=== PATIENT | female | born 1970 ===

== ENCOUNTER 2020-04-15 18:05 | Observation (INO) | payer OTHER, SELFPAY ==
[2020-04-15 18:11] VITALS: BP 140/80; PULSE 97; RESP 16; TEMP 36.6; O2SAT 98; BMI 39.5
--- NOTE | 2020-04-15 18:22 | W.ED.EXTPRO ---
HPI - Extremity Problem General: Chief complaint: Extremity Problem,Nontraumatic Stated complaint: bilateral leg pain Time Seen by Provider: 04/15/20 18:21 History of Present Illness: Associated symptoms: Deny chest pain, fever(s) or rash Review of Systems Const: Denies: fever(s), chills or fatigue Eyes: Denies: change in vision or eye discomfort ENMT: Denies: throat pain, odynophagia, nasal discharge or nasal congestion Card: Denies: chest pain, palpitations, edema, swelling of feet/ankles, dyspnea on exertion or orthopnea Resp: Denies: dyspnea, productive cough or non-productive cough GI: Denies: abdominal pain, nausea, vomiting, diarrhea, constipation or hematochezia : Denies: flank pain, dysuria or hematuria Musc: Denies: neck pain, back pain or extremity swelling Skin/Breast: Denies: rash or new lesions Neuro: Denies: headache(s), numbness in extremities or weakness in extremities PFSH ED PFSH: Social History Smoking and tobacco status: heavy tobacco smoker Alcohol intake: current Alcohol intake frequency: few times a month Substance/Drug Use: never Physical Exam Const: COMMON NORMALS: patient oriented x3 HENMT: COMMON NORMALS: normocephalic HEAD & SCALP: normocephalic MOUTH: Normal oral and palatal mucosa present THROAT: posterior oropharynx normal and uvula midline Neck/C-Spine: COMMON NORMALS: supple GENERAL: Yes normal visual inspection Resp: COMMON NORMALS: normal respiratory effort, No retractions, No use of accessory muscles and clear to auscultation bilaterally AUSCULTATION: clear to auscultation bilaterally Cardio: COMMON NORMALS: regular rate, regular rhythm, S1 normal heart sound present, S2 normal heart sound present, No gallops present (Cardio), No clicks present (Cardio), No murmurs present (Cardio) and Peripheral pulses 2+ throughout RATE: regular rate RHYTHM: regular rhythm HEART SOUNDS: S1 normal heart sound present and S2 normal heart sound present PERIPHERAL PULSES: Peripheral pulses 2+ throughout GI: COMMON NORMALS: Normal to inspection, nondistended, normoactive bowel sounds present, Soft to palpation, non-tender and no masses PALPATION: Yes Soft to palpation : COMMON NORMALS: Yes no CVA tenderness BLADDER/KIDNEY EXAM: Yes no CVA tenderness Back/Pelvis: COMMON NORMALS: no CVA tenderness Neuro: COMMON NORMALS: patient oriented x3 and moves all extremities Course Vital Signs: Vital signs: Vital Signs Temperature 97.8 F 04/15/20 18:11 Pulse Rate 97 04/15/20 18:11 Respiratory Rate 16 04/15/20 18:11 Blood Pressure 140/80 04/15/20 18:11 Pulse Oximetry 98 04/15/20 18:11 Coding Level of Care Code 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
--- NOTE | 2020-04-15 18:46 | ED_ITS ---
HPI - Extremity Problem General: Chief complaint: Extremity Problem,Nontraumatic Stated complaint: bilateral leg pain Time Seen by Provider: 04/15/20 18:21 Source: patient Mode of arrival: ambulatory Limitations: no limitations History of Present Illness: HPI Narrative: Patient went floating 3 days ago on the river. It was supposed to be a 4-hour float trip and it turned out to be a 7-1/2 fluid shift. She got severe sunburns on several parts in her body especially in both lower extremities. She was cramping on that day but she try to keep up with her fluids by taking Gatorade. However her symptoms have gradually worsened. She has severe pain in both lower extremities on standing. She feels both legs are swollen. MD Complaint: extremity pain and extremity swelling Onset (ago): day(s) (2) Pain Consistency: constant Location: left, right and lower extremity Severity scale (1-10): 10 Associated symptoms: Deny fever(s) or rash Review of Systems General: Reports: 10 or more systems reviewed and unremarkable except in HPI and below Const: Denies: fever(s), chills or body aches Eyes: Denies: change in vision or blurry vision ENMT: Denies: throat pain, enlarged tonsils, odynophagia, hoarseness, mouth pain or swelling of lips/tongue Card: Denies: palpitations, irregular heart rhythm, edema or swelling of feet/ankles Resp: Denies: dyspnea, productive cough or non-productive cough GI: Denies: abdominal pain, nausea or vomiting : Denies: flank pain, difficulty voiding, dysuria, urinary frequency, urinary urgency or urinary hesitancy Musc: Reports: extremity pain; Denies: neck pain, back pain or extremity swelling Skin/Breast: Denies: rash, pruritus or erythema Neuro: Denies: headache(s), numbness in extremities or weakness in extremities Endo: Denies: polyuria, polydipsia or tired all the time PFSH ED PFSH: Social History Smoking and tobacco status: heavy tobacco smoker Alcohol intake: current Alcohol intake frequency: few times a month Substance/Drug Use: never Physical Exam Const: COMMON NORMALS: no acute distress, average body habitus, patient oriented x3, no limitations, healthy appearing, alert and well nourished HENMT: COMMON NORMALS: normocephalic, atraumatic and moist oral mucous membranes HEAD & SCALP: normocephalic and atraumatic Neck/C-Spine: COMMON NORMALS: no meningeal signs and no JVD Resp: COMMON NORMALS: normal respiratory effort, No retractions, No use of accessory muscles, clear to auscultation bilaterally and percussion normal AUSCULTATION: clear to auscultation bilaterally PERCUSSION: percussion normal Cardio: COMMON NORMALS: no JVD, regular rate, regular rhythm, S1 normal heart sound present, S2 normal heart sound present, No gallops present (Cardio), No clicks present (Cardio), No murmurs present (Cardio), No rub (Cardio) and Peripheral pulses 2+ throughout RATE: regular rate RHYTHM: regular rhythm HEART SOUNDS: S1 normal heart sound present and S2 normal heart sound present PERIPHERAL PULSES: Peripheral pulses 2+ throughout GI: COMMON NORMALS: Normal to inspection, nondistended, normoactive bowel sounds present, Soft to palpation, non-tender, No hepatosplenomegaly present, no masses and no bruits PALPATION: Yes Soft to palpation and Yes No hepatosplenomegaly present Extremity: COMMON NORMALS: normal to inspection, full ROM, capillary refill normal, no calf tenderness and no pedal edema NARRATIVE EXTREMITY EXAM: no pain on passive movement of her toes. dorsalis pedis palpable bilaterally. brisk capillary refill. Neuro: COMMON NORMALS: patient oriented x3 SENSORIUM/ORIENTATION: Yes alert MENINGEAL SIGNS: Yes no meningeal signs Skin: COMMON NORMALS: no rashes or lesions noted, no wounds, turgor normal, no jaundice, no petechiae and no mottling GENERAL SKIN EXAM: no rashes or lesions noted and turgor normal OTHER: She has significant erythema to the skin of both lower extremities and her forehead. Both lower legs are markedly tender, warm to touch. No calf tenderness. No open wounds. Course Reevaluation(s): Reevaluation #1: 20:00 - Discussed her labs with her - she has rhabdomyolysis. Advise admission and fluids. She voiced understanding and all questions answered. Time: 20:11 Consultations: Consultation #1: Discussed with Dr. Castillo, hospitalist and he kindly accepted the patient to his service Time: 20:10 Vital Signs: Vital signs: Vital Signs Temperature 97.8 F 04/15/20 18:11 Pulse Rate 67 04/15/20 20:11 Respiratory Rate 18 04/15/20 20:11 Blood Pressure 148/102 04/15/20 20:11 Pulse Oximetry 100 04/15/20 20:11 MDM - Extremity (Nontraumatic) MDM Narrative: Medical decision making narrative: Patient with rhabdomyolysis. Likely occurred when she was floating on the river in the sun for 7.5 hours. She has severe leg pain and sun burn but no features of compartment syndrome. Lab Data: Labs: Lab Results 04/15/20 04/15/20 04/15/20 Range/Units 18:45 18:45 18:45 WBC 9.0 (4.0-10.0) 10^3/ uL RBC 4.55 (4.1-5.3) 10^6/u L Hgb 13.6 (11.5-15.3) g/dL Hct 43.0 (37.0-47.0) % MCV 94.5 (81-99) fL MCH 29.9 (28.0-34.0) pg MCHC 31.6 (30.0-36.0) g/dL RDW 13.2 (12.1-15.1) % Plt Count 247 (130-400) 10^3/c mm MPV 10.8 H (7.4-10.4) fL Neut % (Auto) 61.3 % Lymph % (Auto) 27.5 % [place] % (Auto) 8.3 % Eos % (Auto) 2.3 % Baso % (Auto) 0.4 % Neut # (Auto) 5.53 (1.8-7.7) 10^3/u L Lymph # (Auto) 2.5 (0.8-4.8) 10^3/u L [place] # (Auto) 0.8 (0.2-0.9) 10^3/u L Eos # (Auto) 0.2 (0.0-0.8) 10^3/u L Baso # (Auto) 0.0 (0.0-0.1) 10^3/u L Nucleated RBC % (a uto) 0 % Nucleated RBCs # 0.0 /100WBC Sodium 137 (136-145) mmol/L Potassium 3.7 (3.5-5.1) mmol/L Chloride 103 (98-107) mmol/L Carbon Dioxide 23 (22-29) mmol/L Anion Gap 14.7 (5-19) BUN 7 (6-20) mg/dL Creatinine 0.8 (0.5-0.9) mg/dL GFR Calculation 75.9 L (90-130) mL/min Glucose 92 (65-115) mg/dL Calculated Osmolal ity 279 L (285-295) mOsm/k g Lactate 1.1 (0.5-2.2) mmol/L Calcium 8.9 (8.5-10.5) mg/dL Magnesium 2.3 (1.7-2.3) mg/dL Total Bilirubin 0.5 (0.15-1.2) mg/dL AST 23 (0-32) U/L ALT 15 (0-33) U/L Alkaline Phosphata se 78 (35-105) IU/L Creatine Kinase 881 H* (26-192) U/L C-Reactive Protein 80.5 H (0.0-4.9) mg/L Total Protein 6.7 (6.6-8.7) g/dL Albumin 3.9 (3.5-5.2) g/dL Globulin 2.8 (1.3-4.6) g/dL Discharge Plan Discharge Patient Disposition: Admitted As Inpatient Clinical Impression: Burn from the sun Rhabdomyolysis Qualifiers: Rhabdomyolysis type: non-traumatic Qualified Code(s): M62.82 - Rhabdomyolysis Condition: Stable Referrals: Ifeanyi Lehman DO [Primary Care Provider] - Coding Level of Care Code 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
[2020-04-15 18:50] VITALS: BP 144/94; PULSE 73; RESP 16; O2SAT 97
[2020-04-15 18:59] LABS: Basophils % 0.4 %; Eosinophils # 0.2 10^3/uL (0.0-0.8); Eosinophils % 2.3 %; Hemoglobin 13.6 g/dL (11.5-15.3); Lymphocytes # 2.5 10^3/uL (0.8-4.8); Lymphocytes % 27.5 %; Mean Corpuscular HGB Conc 31.6 g/dL (30.0-36.0); Mean Corpuscular Hemoglobin 29.9 pg (28.0-34.0); Mean Corpuscular Volume 94.5 fL (81-99); Mean Platelet Volume 10.8 fL (7.4-10.4); Monocytes # 0.8 10^3/uL (0.2-0.9); Monocytes % 8.3 %; Neutrophils # 5.53 10^3/uL (1.8-7.7); Neutrophils % 61.3 %; Nucleated Red Blood Cells % 0 %; Platelet Count 247 10^3/cmm (130-400); Red Blood Count 4.55 10^6/uL (4.1-5.3); Red Cell Distribution Width 13.2 % (12.1-15.1)
[2020-04-15] MEDS: sodium chloride 0.9% 1,000 ML 999 ML IV ×2 (19:01→20:10)
[2020-04-15 19:13] LABS: Alanine Aminotransferase 15 U/L (0-33); Albumin Level 3.9 g/dL (3.5-5.2); Alkaline Phosphatase 78 IU/L (35-105); Anion Gap 14.7 (5-19); Aspartate Amino Transferase 23 U/L (0-32); Blood Urea Nitrogen 7 mg/dL (6-20); Calcium 8.9 mg/dL (8.5-10.5); Carbon Dioxide 23 mmol/L (22-29); Chloride 103 mmol/L (98-107); Globulin 2.8 g/dL (1.3-4.6); Glomerular Filtration Rate 75.9 mL/min (90-130); Glucose 92 mg/dL (65-115); Magnesium 2.3 mg/dL (1.7-2.3); Osmolality Calculated 279 mOsm/kg (285-295); Potassium 3.7 mmol/L (3.5-5.1); Sodium 137 mmol/L (136-145); Total Bilirubin 0.5 mg/dL (0.15-1.2); Total Protein 6.7 g/dL (6.6-8.7)
[2020-04-15 19:15] LABS: Lactate (Lactic Acid level) 1.1 mmol/L (0.5-2.2)
--- NOTE | 2020-04-15 19:20 | PC.NURSE ---
JESSICA ANDRE IN LAB REPORTED CRITICAL CK OF 881.
[2020-04-15 19:21] LABS: Creatine Phosphokinase 881 U/L (26-192)
--- NOTE | 2020-04-15 19:22 | PC.NURSE ---
REPORTED CK OF [address] LUNA VERBALIZED UNDERSTANDING.
[2020-04-15 19:31] LABS: C Reactive Protein 80.5 mg/L (0.0-4.9)
--- NOTE | 2020-04-15 20:10 | P.HP_ITS ---
Providers/Chief Complaint Primary Care Provider: Ifeanyi Lehman DO Chief Complaint: leg pain History of Present Illness Halley Ruelas is a 49 year old female who does not carry significant past medical history came in after experiencing muscle cramps and generalized weakness. Patient is stating that she spent about 7[place]1/2 hours on the river, she and her friends have to do a lot of walking in the river because of low tide, she experienced sunburn, she tried to increase her fluid intake by drinking Gatorade but when she woke up the next day she was not able to carry her weight on her legs, she was producing a lot of muscle cramps with some generalized weakness hence decided to come to the hospital for the evaluation. She is d enying fever, nausea, vomiting, chest pain, palpitations, dysuria, open skin ulcers. Patient is endorsing social stressors, recently got . She has started to smoke again, for last couple of months she is smoking 1 pack/day, no use of alcohol or IV drug abuse. Diagnosis in the ER revealed normal hemodynamics, CPK mildly high Because of her muscle cramps hospital service has been requested to admit her overnight to monitor CPK and associated with IV fluids I have requested CT of right lower leg, swelling right greater than left Review of Systems Const: Reports: chills, body aches and fatigue; Denies: fever(s) Eyes: Denies: change in vision ENMT: Denies: throat pain Card: Denies: chest pain Resp: Denies: dyspnea GI: Denies: abdominal pain : Denies: flank pain Musc: Reports: extremity pain, limited range of motion, muscle cramps and muscle weakness Skin/Breast: Reports: rash and new lesions (Sunburnt) Neuro: Denies: headache(s) Psych: Reports: anxiety Endo: Denies: polyuria Roque/Lymph: Denies: easy bruising All/Imm: Denies: urticaria Medications/Allergies Home Medications Medication Instructions Recorded Confirmed Last Taken Type acetaminophen [Tylenol Extra 1,000 mg PO PRN PRN 04/15/20 04/15/20 04/15/20 History Strength] Allergies Allergy/AdvReac Type Severity Reaction Status Date / Time dextromethorphan Allergy ALGY-Difficulty Verified 04/15/20 18:16 [From NyQuil] Breathing diphenhydramine Allergy ALGY-Difficulty Verified 04/15/20 18:16 [From Benadryl] Breathing doxylamine [From NyQuil] Allergy ALGY-Difficulty Verified 04/15/20 18:16 Breathing loratadine [From Claritin] Allergy ALGY-Difficulty Verified 04/15/20 18:16 Breathing PFSH Acute PFSH: Medical History Anxiety Miscarriage 1 miscarriage, 4 pregnancies, 3 vaginal deliveries UTI (urinary tract infection) Surgical History H/O cervical polypectomy Tubal ligation status Family History Denies family history of Hypertension Social History Smoking and tobacco status: heavy tobacco smoker cigarettes [ Other cigarette details: On and off use of cigarettes, currently smoking 1 pack/day for last few months ] Alcohol intake: current Alcohol intake frequency: few times a month Substance/Drug Use: never Lives independently: Yes Housing: House Vitals/I&O/Wt Last Vital Signs Temp 97.8 F 04/15/20 18:11 Pulse 73 04/15/20 18:50 Resp 16 04/15/20 18:50 BP 144/94 04/15/20 18:50 Pulse Ox 97 04/15/20 18:50 Weight last 48 hrs Weight 111.13 kg Physical Exam Narrative: EXAM NARRATIVE: Well-built female Currently lying comfortably in her bed Sunburnt skin No active cellulitis Right lower extremity swelling greater than left, tender to palpate No vascular compromise S1, S2 no tachycardia Lungs are clear to auscultation Abdomen soft nontender nondistended Neurologically nonfocal exam EOMI, PERRLA Data : 04/15/20 18:45 04/15/20 18:45 A&P Assessment and plan (1) Rhabdomyolysis: Status: Acute Qualifiers: Rhabdomyolysis type: non-traumatic Qualified Code(s): M62.82 - Rhabdomyolysis (2) Burn from the sun: Status: Acute Additional A&P Information Mild rhabdomyolysis CRP 80 Creatinine is normal, calcium 8.9, I will check uric acid and phosphate level Monitor CPK, resuscitate with IV fluids Monitor urine output CT of right lower extremity, no active sign of cellulitis, gangrene Sunburn I would use topical benzocaine with ice packs NSAIDs for pain No active cellulitis noted Would recommend follow-up with general education professor Full code DVT prophylaxis Regular diet Attestations Medical Necessity Statement*: Anticipating discharge in less than 48 hours currently not fluid restriction for mild rhabdomyolysis Time Spent in Patient Care: (>than 50% of time spent in counselling and/or direct pt care on unit) . 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
[2020-04-15 20:11] VITALS: BP 148/102; PULSE 67; RESP 18; O2SAT 100
--- NOTE | 2020-04-15 20:23 | CTR_ITS ---
PROCEDURE INFORMATION: Exam: CT Right Lower Extremity Without Contrast; Lower Leg Exam date and time: 04/15/2020 8:38 PM Age: 49 years old Clinical indication: Pain; Lower leg; Right; Additional info: Rhabdomyolysis TECHNIQUE: Imaging protocol: CT of the Right lower extremity without contrast was performed. Exam focused on the lower leg. Radiation optimization: All CT scans at this facility use at least one of these dose optimization techniques: automated exposure control; mA and/or kV adjustment per patient size (includes targeted exams where dose is matched to clinical indication); or iterative reconstruction. COMPARISON: No relevant prior studies available. RADIATION DOSE METRICS: Total DLP (mGy-cm): 1084.61 FINDINGS: Bones/joints: The bones are intact and in normal alignment. Soft tissues: Subcutaneous soft tissue edema in the ankle and anterior caceres. Focal fatty atrophy in the central aspect of the medial head of the gastrocnemius muscle. No organized fluid collection or abscess. Skin thickening in the upper anterior lower leg. CT/CT lower leg RT w con [id number] IMPRESSION: 1. Subcutaneous soft tissue edema and anterior skin thickening could represent nonspecific edema or cellulitis. 2. No organized fluid collection or abscess. 3. Chronic focal fatty atrophy in the medial head of the gastrocnemius muscle. Radiation Dose CTDIVOL = (mGy): DLP = 1084.61 (mGy-cm)
[2020-04-15] MEDS: iohexol 300 mg/mL 100 mL Btl IV (20:50)
--- NOTE | 2020-04-15 21:07 | PC.NURSE ---
attempted report unable to give report.
[2020-04-15 21:21] VITALS: RESP 16; O2SAT 99
[2020-04-15] MEDS: sodium chloride 0.9% 1,000 ML 150 ML IV (21:21)
[2020-04-15] MEDS: morphine 4 mg/mL SDV 1 mL IVP (21:21)
[2020-04-15 21:23] VITALS: BP 134/83; PULSE 78; RESP 16; O2SAT 99
--- NOTE | 2020-04-15 22:38 | PC.NURSE ---
REPORT GIVEN TO CRISTY Lopez LPN.
[2020-04-15 23:00] VITALS: BP 133/81; PULSE 65; RESP 18; TEMP 36.5; O2SAT 99
[2020-04-15] MEDS: cyclobenzaprine 10 mg Tablet PO (23:13)
[2020-04-15] MEDS: enoxaparin 40 mg/0.4 mL Syringe SUBCUT (23:13)
[2020-04-15] MEDS: ibuprofen 200 mg Tablet 400 MG PO (23:48)
--- NOTE | 2020-04-16 02:03 | PC.NURSE ---
warm blankets provided. No other needs voiced.
[2020-04-16 03:35] VITALS: BP 96/57; PULSE 61; RESP 16; TEMP 36.6; O2SAT 98
[2020-04-16] MEDS: sodium chloride 0.9% 1,000 ML 150 ML IV ×2 (03:36→10:22)
[2020-04-16 05:09] LABS: Basophils # 0.1 10^3/uL (0.0-0.1); Basophils % 0.7 %; Eosinophils # 0.3 10^3/uL (0.0-0.8); Eosinophils % 3.7 %; Hematocrit 36.7 % (37.0-47.0); Hemoglobin 11.4 g/dL (11.5-15.3); Lymphocytes % 42.6 %; Mean Corpuscular HGB Conc 31.1 g/dL (30.0-36.0); Mean Corpuscular Hemoglobin 29.6 pg (28.0-34.0); Mean Corpuscular Volume 95.3 fL (81-99); Mean Platelet Volume 10.8 fL (7.4-10.4); Monocytes # 0.5 10^3/uL (0.2-0.9); Neutrophils % 45.9 %; Nucleated Red Blood Cells % 0 %; Platelet Count 207 10^3/cmm (130-400); Red Blood Count 3.85 10^6/uL (4.1-5.3); Red Cell Distribution Width 13.4 % (12.1-15.1)
[2020-04-16 05:30] LABS: Anion Gap 11.8 (5-19); Blood Urea Nitrogen 6 mg/dL (6-20); Calcium 8.4 mg/dL (8.5-10.5); Carbon Dioxide 23 mmol/L (22-29); Chloride 111 mmol/L (98-107); Glomerular Filtration Rate 75.9 mL/min (90-130); Glucose 92 mg/dL (65-115); Osmolality Calculated 289 mOsm/kg (285-295); Potassium 3.8 mmol/L (3.5-5.1); Sodium 142 mmol/L (136-145)
[2020-04-16 05:33] LABS: Phosphorus 2.9 mg/dL (2.5-4.5)
[2020-04-16 05:43] LABS: Creatine Phosphokinase 880 U/L (26-192)
[2020-04-16 07:20] VITALS: BP 103/63; PULSE 59; RESP 20; TEMP 36.7; O2SAT 98
[2020-04-16] MEDS: sennosides-docusate Tablet 1 TAB PO (08:31)
--- NOTE | 2020-04-16 11:03 | PC.CHAP ---
Pastoral Care Encounter/Spiritual Assessment Type of Contact [] Declined research subject visit [] Patient/Family/Request visit [] Outpatient visit [] Follow-up visit [] Physician referral [] Code/Alert [x] Routine visit [] Staff referral [] Actively dying [] Patient sleeping [] Family support [] [] Out of room [] Palliative care [] [] Receiving care in room [] Pre-surgical visit [] Trauma [] Long length of stay [] ICU visit [] Other: Relational/Emotional Strength [x] Patient feels connected with others/family/visitors/staff [] Distress [] Loneliness/isolation [] Abandonment Spirituality of Patient [] Person of Madeleine [] Attends Synagogue of their Madeleine [] Believes in Prayer [] Reads Bible or Moravian materials [x] There are Spiritual issues to be addressed 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 Interventions [] Prayer [x] Active listening [x] Non-anxious presence x[] Spiritual/emotional support [] Crisis/trauma care [] Spiritual counseling [] Bereavement support [] Provided bereavement packet [] Provided Bible/devotional materials [] Provided toy/stuffed animal, coloring book to patient or family member [] Provided Communion [] Anointing/[place] [] Salvation [x] Completed spiritual assessment [] Other: Impact on Illness or Injury [] Angry [] Fearful [] Anxious [] Often cries [] Exhaustion [] Unable to work [] Unable to attend scientologist [] Unable to walk/stand [] Unable to read [] Unable to drive [] Unable to eat/drink [] Unable to sleep [] Unable to be with family [] Patient intubated [x] Other: Summary Patient has an unbiblical view/ understanding of Lord [place] and expressed personal comfort in her view. Patient also declined prayer. Time spent with patient 10 minutes
[2020-04-16 11:34] VITALS: BP 108/75; PULSE 64; RESP 18; TEMP 37; O2SAT 97
--- NOTE | 2020-04-16 14:31 | P.DS_ITS ---
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 During the trip she sustained sunburn over her face, shoulders, arms, legs. She also developed pain in her calves and shins which at the most severe point made it difficult for her to walk easily, and so she decided to get assessed in emergency department. There she was noted to have mild rhabdomyolysis with CK of 818. Noted to have CRP elevation of 8.5. Function was found normal. She was afebrile. CT of right lower extremity was obtained with some noted subcutaneous soft tissue edema, no anterior skin, other incidental findings. I am not sure why exactly the right lower extremity was imaged. On my examination both extremities were symmetrical in size. She reports that with conservative measures in the hospital pain has improved. She has walked to the restroom in her room much easier currently. She does have pronounced sunburn, there is no difference between erythema, or significant difference in swelling between different areas which are sunburned. She does have some tenderness on palpation of the anterior lower legs. She has no sensation changes. She has no pain with passive flexion or extension of the ankle or knee. She has no issues with moving her feet or toes. She has good pulses bilaterally. Feet appear well perfused. Discussed with our stitch [employer] machine tender orthopedics physician and he agrees concern for compartment syndrome would be very low at current stage. She does incidentally note that over at least the past several weeks she has felt like she has had some fullness of the left knee. Had not see very discernible swelling on the left compared to the right. She denies any redness prior to the sunburn which is currently bilateral. She agrees that suspicion for joint infection is low given lack of other signs. She believes it may be due to some chronic injury. We will go ahead and assess with MRI. She understands that if any infection were to affect her knee it would be an emergency requiring immediate attention. If she needed orthopedic asssessment for this she states preference to have that in [place]. But currently understands to seek medical attention in case of any occurrence of fever, pain, swelling inability to walk or any other concerning symptoms. Due to rhabdomyolysis she is agreeable to take off work until at least monday to give her muscles a chance to heal and avoid worsening any injury leading to swelling and risking developing compartment syndrome. She will discuss with her primary care doctor with regards to all these issues as well as moderately-high elevation of CRP. This may be considered repeated first to confirm improvement as inflammation from her sunburn subsides, but considering additional evaluation in case there is no improvemenet. Physical Exam Const: COMMON NORMALS: no acute distress and patient oriented x3 HENMT: COMMON NORMALS: oropharynx normal Neck/C-Spine: COMMON NORMALS: no JVD Resp: COMMON NORMALS: normal respiratory effort and clear to auscultation bilaterally AUSCULTATION: clear to auscultation bilaterally Cardio: COMMON NORMALS: no JVD, regular rhythm, S1 normal heart sound present, S2 normal heart sound present and No murmurs present (Cardio) RHYTHM: regular rhythm HEART SOUNDS: S1 normal heart sound present and S2 normal heart sound present GI: COMMON NORMALS: Normal to inspection, nondistended, normoactive bowel sounds present, Soft to palpation and non-tender PALPATION: Yes Soft to palpation Extremity: COMMON NORMALS: no joint enlargement and no pedal edema Neuro: COMMON NORMALS: patient oriented x3 and moves all extremities Skin: OTHER: Moderately severe sunburn with redness but no blistering over face, shoulders, arms, upper back and chest as well as both anterior legs. Discharge Data Data Completed and Pending: Completed Studies During Hospitalization Category Date Time Status CT lower leg RT w con [id number] Stat Cat Scan 04/15/20 20:23 Completed Pending at discharge Category Date Time Status Blood Culture Sta t Lab 04/16/20 14:23 Ordered Labs from last 24 hours 04/16/20 04/16/20 04/16/20 04:46 04:46 04:46 WBC RBC Hgb Hct MCV MCH MCHC RDW Plt Count MPV Neut % (Auto) Lymph % (Auto) [place] % (Auto) Eos % (Auto) Baso % (Auto) Neut # (Auto) Lymph # (Auto) [place] # (Auto) Eos # (Auto) Baso # (Auto) Nucleated RBC % (a uto) Nucleated RBCs # Sodium 142 Potassium 3.8 Chloride 111 H Carbon Dioxide 23 Anion Gap 11.8 BUN 6 Creatinine 0.8 GFR Calculation 75.9 L Glucose 92 Calculated Osmolal ity 289 Lactate Uric Acid 3.0 Calcium 8.4 L Phosphorus 2.9 Magnesium Total Bilirubin AST ALT Alkaline Phosphata se Creatine Kinase 880 H* C-Reactive Protein Total Protein Albumin Globulin 04/16/20 04/15/20 04/15/20 04:46 18:45 18:45 WBC 7.0 RBC 3.85 L Hgb 11.4 L Hct 36.7 L MCV 95.3 MCH 29.6 MCHC 31.1 RDW 13.4 Plt Count 207 MPV 10.8 H Neut % (Auto) 45.9 Lymph % (Auto) 42.6 [place] % (Auto) 7.0 Eos % (Auto) 3.7 Baso % (Auto) 0.7 Neut # (Auto) 3.20 Lymph # (Auto) 3.0 [place] # (Auto) 0.5 Eos # (Auto) 0.3 Baso # (Auto) 0.1 Nucleated RBC % (a uto) 0 Nucleated RBCs # 0.0 Sodium 137 Potassium 3.7 Chloride 103 Carbon Dioxide 23 Anion Gap 14.7 BUN 7 Creatinine 0.8 GFR Calculation 75.9 L Glucose 92 Calculated Osmolal ity 279 L Lactate 1.1 Uric Acid Calcium 8.9 Phosphorus Magnesium 2.3 Total Bilirubin 0.5 AST 23 ALT 15 Alkaline Phosphata se 78 Creatine Kinase 881 H* C-Reactive Protein 80.5 H Total Protein 6.7 Albumin 3.9 Globulin 2.8 04/15/20 18:45 WBC 9.0 RBC 4.55 Hgb 13.6 Hct 43.0 MCV 94.5 MCH 29.9 MCHC 31.6 RDW 13.2 Plt Count 247 MPV 10.8 H Neut % (Auto) 61.3 Lymph % (Auto) 27.5 [place] % (Auto) 8.3 Eos % (Auto) 2.3 Baso % (Auto) 0.4 Neut # (Auto) 5.53 Lymph # (Auto) 2.5 [place] # (Auto) 0.8 Eos # (Auto) 0.2 Baso # (Auto) 0.0 Nucleated RBC % (a uto) 0 Nucleated RBCs # 0.0 Sodium Potassium Chloride Carbon Dioxide Anion Gap BUN Creatinine GFR Calculation Glucose Calculated Osmolal ity Lactate Uric Acid Calcium Phosphorus Magnesium Total Bilirubin AST ALT Alkaline Phosphata se Creatine Kinase C-Reactive Protein Total Protein Albumin Globulin Vitals: Last Vital Signs Temp 98.6 F 04/16/20 11:34 Pulse 64 04/16/20 11:34 Resp 18 04/16/20 11:34 BP 108/75 04/16/20 11:34 Pulse Ox 97 04/16/20 11:34 Discharge Plan Discharge Patient Disposition: Home Condition: Stable Prescriptions: New calamine-zinc oxide 8-8 % Lotion 1 applic topical Q4H PRN (Reason: Itching) Qty: 177 RF: 0 Saline Nasal 0.65 % aerosol,spray 1 spray INTRANASAL TID PRN (Reason: nasal congestion) Qty: 30 RF: 0 Continued Tylenol Extra Strength 500 mg Tablet 1,000 mg PO PRN PRN (Reason: Pain) RF: 0 Discharge Orders: Discharge Order (Routine); Ordered 04/16/20 Ordered By: Alexandre Cummings Other Ambulatory Orders: MR knee LT wo con* [id number] (Routine) Timeframe: 1 Week Facility: [facility] - Location: Radiology [facility] Ordered By: Alexandre Cummings Referrals: Ifeanyi Lehman DO [Primary Care Provider] - 4-7 days (Rhabdomyolysis, elevated CRP, caceres pain, L knee swelling) Discharge Diet: Usual diet Discharge Activity: Limit activity as instructed and Return to work/school after cleared by PCP/Specialist Patient Instructions: Sunburn (DC), Rhabdomyolysis (DC) Activity Restrictions/Additional Instructions: If you experience any severe pain in your shins or calves, any loss of sensation, any difficulty moving your ankles or feet, any fever, lack of urine output, or other abnormal symptoms, please seek medical attention without delay. Please discuss with your primary care doctor with regards to rhabdomyolysis. Lower extremity pain. Please discuss with your primary care doctor with regards to elevation of CRP (80.5). Please discuss with your primary care doctor regarding chronic swelling in your left knee, and follow-up on MRI results. Stand Alone Forms: Work/School Release Discharge Attestations Time Spent in Discharge Care*: greater than 30 min Quality Metrics Clinical Quality Measures During this hospital stay, did patient experience: None Coding Level of Care Code Acute Physician Obstetrician for Humberto Root Diagnoses Rhabdomyolysis M62.82 Rhabdomyolysis type: non-traumatic Burn from the sun L55.9
[2020-04-16 14:50] VITALS: BP 108/75; PULSE 64; RESP 18; TEMP 37; O2SAT 97
--- NOTE | 2020-04-17 14:43 | PC.RESP ---
Smoking Cessation information sent to patient.
== END 2020-04-16 15:48 | disposition home or self-care (01) ==
LOC: ER 20:23 → MEDSURG 04-16 05:22
PROVIDERS: Family Medicine; Admitting Provider Internal Medicine; PCP Family Medicine; Visit Provider Internal Medicine
DX: M62.82 Rhabdomyolysis (principal); L55.9 Sunburn, unspecified; F17.210 Nicotine dependence, cigarettes, uncomplicated
CPT/HCPCS: 12345; 36415; 73701; 80048; 80053; 82550; 83605; 83735; 84100; 84550; 85025; 86140; 96361; 96372; 96374; 96375; 99283; 99285; G0378; J1650; J2270; J7030; Q9967

== ENCOUNTER → 2022-03-22 13:32 | Outpatient (BNVA) | payer OTHER, SELFPAY | PROVIDERS: PCP Family Medicine; Visit Provider Family Medicine | DX: Z00.00 Encounter for general adult medical examination without abnormal findings (principal) | CPT/HCPCS: 80053; 80061; 82607; 84443; 85025 ==

== ENCOUNTER → 2024-01-08 08:52 | Outpatient (BNVA) | payer OTHER, SELFPAY | PROVIDERS: PCP Family Medicine; Visit Provider Family Medicine | DX: Z13.6 Encounter for screening for cardiovascular disorders (principal); Z00.00 Encounter for general adult medical examination without abnormal findings | CPT/HCPCS: 80053; 80061 ==